=== PATIENT | female | born 1955 | race Caucasian/White ===

== ENCOUNTER 2022-02-24 05:45 | Day surgery (SDC) | payer MEDICARE ==
[~2022-02-24] VITALS: Ht 165.1 cm; Wt 122.7 kg
[~2022-02-24 05:45] MED LIST: CALCIUM500 MG PO; GABAPENTIN300 MG PO; LISINOPRIL20 MG PO; MAGNESIUM400 M1 PO; MELATONIN10 M2 PO; OMEPRAZOLE20 M2 PO; TRAZODONE HCL100 MG PO; VITA-C120 GM
--- NOTE | 2022-02-24 08:36 | NUR ---
PT IS ALERT, ORIENTED AND HAS COME HERE FROM [place] TO BE TREATED HERE. DAUGHTER IN LAW WILL BE HERE AT [place]. ALL QUESTIONS ASKED ANSWERED. PT MENTIONED THAT MANY PEOPLE WERE PRAYING FOR HER AND REQUESTED PRAYER. WILL FOLLOW
--- NOTE | 2022-02-24 11:27 | NUR ---
02/24/22 Jenaro Marin SHAKES HEAD "NO" WHEN ASKED IF SHE HAS PAIN OR NAUSEA.
[2022-02-24] MEDS ORDERED: MOTRIN IB200 MG PO (11:43)
[2022-02-24] MEDS ORDERED: PERCOCET 7.5-31 EACH PO (11:43)
[2022-02-24] MEDS ORDERED: TYLENOL EXTRA500 MG PO (11:44)
--- NOTE | 2022-02-24 12:25 | NUR ---
1210 PATIENT REPORT RECIEVED FROM ELVIN SHEPPARD. PATIENT BACK TO ROOM 5. PATIENT IS ALERT AND ORIENTED. BREATHING EQUAL AND UNLABORED. OXYGEN SATURATIONS ABOVE 90% ON ROOM AIR. PAITENT COMPLAINS OF 6/10 PAIN AT SURGICAL SITE. PATIENT DRESSINGS CLEAN, DRY AND INTACT. PATIENT DENIES FEELING NAUSEATED. IVF INFUSING. PATIENT DRINKING WATER AND EATING CRACKERS. SCD'S ON. NO QUESTIONS AT THIS TIME CALL LIGHT WITHIN REACH NO FUTHER NEEDS.
--- NOTE | 2022-02-24 12:32 | NUR ---
1230 PATIENT GIVEN PRN PAIN MEDICINE. PATIENT DENIES FEELING NAUSEATED AFTER CRACKERS. CALL LIGHT WITHIN REACH NO FUTHER NEEDS AT THIS TIME. NO QUESTIONS.
--- NOTE | 2022-02-24 13:09 | NUR ---
1309 PATIENT ALERT AND ORIENTED. PATIENT BREATHING EQUAL AND UNLABORED. OXYGEN SATURATIONS ABOVE 95% ON ROOM AIR. PATIENT COMPLAINS OF 5/10 PAIN BUT DENIES NEEDING MEDICATIONS AT THIS TIME. DENIES FEELING NAUSEATED. IVF INFUSING. SCD'S ON. PATIENT SURIGCAL SITE CLEAN DRY AND INTACT. PATIENT DENIES FEELING THE NEED TO VOID. WATER GIVEN TO PATIENT CALL LIGHT WITHIN REACH NO FUTHER NEEDS. NO QUESTIONS AT THIS TIME.
--- NOTE | 2022-02-24 14:14 | NUR ---
1345 PATIENT ABLE TO AMBULATE TO RESTROOM. PATIENT VOIDED CLEAR AND YELLOW URINE. PATIENT TOLERATED AMBULATION WELL. 1355 PATIENT DRESSING SELF. PATIENT HAS MET DISCHARGE CRITERIA. DISCHARGE INSTRUCTIONS GIVEN AND UNDERSTOOD. NO QUESTIONS AT THIS TIME. PATIENT IV D/C'D WNL. PATIENT WAS WHEELED OUT OF FACILITY TO SON. PRESCIPTION GIVEN TO HIM. NO QUESTIONS AND NO FUTHER NEEDS.
--- NOTE | 2022-02-24 17:56 | OR ---
[facility] [address], [place] [address] Signed DATE OF OPERATION: 02/24/2022 SURGEON: Denny Nava MD PREOPERATIVE DIAGNOSIS: Left upper outer quadrant infiltrating ductal breast carcinoma, ER-MN positive, Her2/lise negative. POSTOPERATIVE DIAGNOSIS: Left upper outer quadrant infiltrating ductal breast carcinoma, ER-MN positive, Her2/lise negative. PROCEDURES: 1. Injection of left areola with methylene blue dye for sentinel lymph node identification. 2. Left deep axillary sentinel lymph node biopsies x3 (+). 3. Left needle localized partial mastectomy upper outer quadrant. ANESTHESIA: General, LMA with conversion endotracheal tube (Nicole Ho CRNA) and local 10 mL of 0.25% Marcaine with epinephrine. INDICATIONS: This 66-year-old white woman is the [id number] of Dr. Taylor Morse. The patient is from [place], [place]. She was found to have a BI-RADS category 5 mammogram, ultimately undergoing image-guided biopsy as well as butterfly HydroMARK clip application to the biopsy site. Her pathology report dated January 07, 2022, confirmed infiltrating ductal carcinoma, nuclear grade 2/3, histologic grade 1/3, and mitotic grade 1/3. There was no evidence of lymphovascular invasion or perineural invasion or other adverse findings. There were some microcalcifications, but no evidence of in situ carcinoma. The lesion was ER positive, Her2/lise negative and MN positive. She has no associated palpable abnormality nor suspicious lymph nodes on examination. She has no evidence of metastatic disease based on chest x-ray preoperatively obtained. She is admitted at this time to undergo partial mastectomy with needle localized technique as well as sentinel lymph node biopsy of left axilla. She understands the risks of bleeding, infection, cosmetic deformity, need for additional surgery to provide a negative margin pathologically as well as need for possible axillary dissection depending on the extent of lymph node involvement (if any). She additionally understands that radiation therapy is considered standard to the treatment approach. She has chosen at this point. Understanding these risks, she wished to proceed. Electronically Signed By: DENNY NAVA MD 02/24/22 1756 PATIENT NAME: CARLIN MORSE OPERATIVE REPORT DATE OF : 57 REPORT #: [id number] PHYSICIAN: DENNY NAVA MD PCP: EBER VASQUEZ MD REPORT IS CONFIDENTIAL AND NOT TO BE RELEASED WITHOUT AUTHORIZATION [facility] [address], [place] [address] Signed FINDINGS: Needle localization was by Dr. Adam Osei, radiologist. The needle was well positioned and juxtaposed not far from the offending lesion. Specimen radiograph confirmed the excised specimen to contain the lesion and clip as expected. As regards, sentinel lymph node identification radionuclide dye was most helpful for identification of sentinel lymph nodes. Methylene blue dye did not take up well in the nodes for some reason. A 3 nodes (minimum) were excised, one of them which was relatively large, almost 2.5 cm, but not firm and hard and may represent reactive change. Final pathology is pending on those as current local protocol has not included frozen pathology of axillary lymph nodes. Good cosmesis was maintained. DESCRIPTION OF PROCEDURE: The patient was brought to the operating room, given a general LMA type anesthetic. Preoperative antibiotic Ancef was given. Sequential compression device stockings used and heparin subcutaneously administered. The left breast had a wire emanating from the superior medial aspect extending towards the left upper outer quadrant. A 2 mL of methylene blue dye was injected in the subepidermal space. The left breast axilla and arm were prepared with spray Betadine solution and draped sterilely. Interrogation of the left axilla with the C-Trak probe, found an area of intense uptake and a transverse incision was made in the axilla. Dissection was carried through the subcutaneous tissue with blunt electrocautery dissection. Unlike usual, arborization of methylene blue lymphatics was not forthcoming. Using the C-Trak probe alone, ultimately the area of hot uptake was undertaken was identified rather and dissection undertaken with blunt dissection. An area corresponding to initial sentinel lymph node was dissected free, passed for a sentinel lymph node #1 and confirmed to be "hot" with a probe. Additional dissection revealed a palpable node, which was relatively large, probably 2 cm or so in size and had intense uptake as well. This was dissected free also. Further dissection identified another small node also considered hot and quite unlikely to be malignant, but sent as sentinel lymph node #3. Additional interrogation of the axilla showed only minimal signal and thus the dominant sentinel lymph nodes have been removed. Notably, there was no sign of extensive blue dye lymphatic arborization as might have been expected. The wound was then packed and plans made for definitive excision of the offending lesion in the upper outer aspect of the left breast. The wire site was examined in relation to the preoperative localizing mammograms. An incision was made along the line of skin tension in the upper outer aspect of the breast. Dissection carried through the dermis sharply and electrocautery used for hemostasis. The wire was delivered into the wound. The parenchyma of the breast was grasped with an Allis clamp including the wire using electrocautery dissection. A conical excision was undertaken along the course of the wire. Wide resection was Electronically Signed By: DENNY NAVA MD 02/24/22 1756 PATIENT NAME: CARLIN MORSE OPERATIVE REPORT DATE OF : 57 REPORT #: [id number] PHYSICIAN: DENNY NAVA MD PCP: EBER VASQUEZ MD REPORT IS CONFIDENTIAL AND NOT TO BE RELEASED WITHOUT AUTHORIZATION [facility] [address], [place] [address] Signed undertaken, so as to be certain to excise the offending lesion in total. Dissection was carried to the pectoralis fascia indeed. Complete extirpation of the site with the wire in situ was undertaken the short, a short stitch was marked, designated superior specimen and long stitch laterally. The specimen sent for specimen radiograph, was confirmed by the radiologist include the clip and pathologic lesion in the resected specimen. Irrigation was undertaken with sterile water. A change of the LMA to an endotracheal tube was required during the course of this dissection and was accomplished without complication. Re-inspection of the axilla showed no sign of bleeding or other problem. Additional interrogation of the axilla showed a small amount of uptake and a small amount of blue dye in one area. This additional tissue was excised, though did not have an intense uptake with the radionuclide monitor. Once hemostasis was assured in both wounds, the parenchyma of the breast was reapproximated with interrupted 2-0 Vicryl. The skin was then closed with running subcuticular 3-0 Vicryl. Examination the axilla allowed for closure and a layered approach with 2-0 Vicryl and ultimately a running subcuticular 3-0 Vicryl. Steri-Strips were applied to each site as was an Acticoat dressing. The patient was ultimately extubated and transferred to the recovery room in good condition having suffered no complications. Sponge, needle, and instrument counts reported as correct x3. MD CHAPARRO Noland/AGL /[id number] cc: Taylor Morse MD Electronically Signed By: DENNY NAVA MD 02/24/22 1756 PATIENT NAME: CARLIN MORSE OPERATIVE REPORT DATE OF : 57 REPORT #: [id number] PHYSICIAN: DENNY NAVA MD PCP: EBER VASQUEZ MD REPORT IS CONFIDENTIAL AND NOT TO BE RELEASED WITHOUT AUTHORIZATION [facility] [address] [place] [address] [place], [place] [address] Signed Copies: ~ Electronically Signed By: DENNY NAVA MD 02/24/22 1756 PATIENT NAME: CARLIN MORSE OPERATIVE REPORT DATE OF : 57 REPORT #: [id number] PHYSICIAN: DENNY NAVA MD PCP: EBER VASQUEZ MD REPORT IS CONFIDENTIAL AND NOT TO BE RELEASED WITHOUT AUTHORIZATION
--- NOTE | 2022-03-05 23:01 | PATH ---
[facility] [address] [facility] [place], [place] [address] Signed SPECIMEN(S): A SENTINEL LYMPH NODE SPECIMEN(S): B SENTINEL LYMPH NODE 2 SPECIMEN(S): C SENTINEL LYMPH NODE 3 SPECIMEN(S): D LEFT BREAST SPECIMEN(S): E ADDITIONAL LEFT BREAST TISSUE SPECIMEN(S): F ADDITIONAL AXILLARY TISSUE SPECIMEN SOURCE: A. SENTINEL LYMPH NODE B. SENTINEL LYMPH NODE 2 C. SENTINEL LYMPH NODE 3 D. LEFT BREAST E. ADDITIONAL LEFT BREAST TISSUE F. ADDITIONAL AXILLARY TISSUE CLINICAL HISTORY: Left breast CA sentinel lymph node, left breast mass. Specimen Time to Fixation- 02/24/2022 10:44:00 AM FINAL PATHOLOGIC DIAGNOSIS: A. [place] lymph node, lymphadenectomy: - One sentinel lymph node, negative for tumor (0/1). - AE1/AE3 immunohistochemical stain and multiple serial sections are negative. Control slide stained appropriately positive. B. [place] lymph node #2, lymphadenectomy: - One sentinel lymph node, negative for tumor (0/1). - AE1/AE3 immunohistochemical stain and multiple serial sections are negative. Control slide stained appropriately positive. C. [place] lymph node #3, lymphadenectomy: - One sentinel lymph node, negative for tumor (0/1). - AE1/AE3 immunohistochemical stain and multiple serial sections are negative. Control slide stained appropriately positive. D. Breast, left, oriented lumpectomy: - Invasive ductal carcinoma with the following features: - Tumor site: Not specified. - Histologic grade ([place] histologic score): - Tubule formation score: 1/3. - Nuclear grade score: 2/3. - Mitotic score: 1/3. - Total score and applicable grade: I/III, total score 4/9, low grade. PATIENT NAME: JULITA MORSE PATHOLOGY DATE OF : 57 REPORT #: [id number] PHYSICIAN: FRANKLIN BECERRA PCP: EBER VASQUEZ MD REPORT IS CONFIDENTIAL AND NOT TO BE RELEASED WITHOUT AUTHORIZATION [facility] [address], [place] [address] Signed - Tumor size: 12 mm (see comment). - Ductal carcinoma in situ: Present, solid architectural pattern, 0.6 mm in greatest dimension, with no evidence of necrosis. - Lymphovascular invasion: Absent. - Treatment effect: No known presurgical therapy. - Treatment effect in lymph nodes: No known presurgical therapy. - Margins: - Invasive: - Inferior margin: 5 mm. - All other margins: Greater than 10 mm. - Ductal carcinoma in situ: - Inferior margin: 1 mm. - Medial margin: 4.5 mm. - All other margins: Greater than 10 mm. - Summary of lymph nodes: - Total number of lymph nodes examined: 3. - Total number of sentinel lymph nodes examined: 3. - Total number of lymph nodes with metastatic carcinoma: 0. - Additional findings: Atrophic breast tissue. - Breast tumor studies: Pending and will be reported in an addendum report. - Pathologic stage classification: pT1c, pN0(sn). E. Left breast tissue, additional, excision: - Adipose tissue within normal limits. F. Axillary tissue, additional, excision: - Adipose tissue within normal limits. COMMENT: Tumor is identified on polar opposite sides of the prior biopsy site. 12 mm represents the entire breadth of the tumor to include the central cystic scarred biopsy site. One of the tumor foci on one end of the biopsy site measures 2 mm in greatest dimension and the tumor focus completely opposite from this biopsy site measures 2.5 mm. Please correlate the size with the radiologic findings. As part of [facility]' Quality Improvement Program, this case was reviewed by another member of our pathology staff. PEGGY:JOY:emh:C1NR MICROSCOPIC EXAMINATION: Histologic sections of all submitted blocks are examined by light microscopy. These findings, together with the gross examination, support the pathologic diagnosis. PATIENT NAME: JULITA MORSE PATHOLOGY DATE OF : 57 REPORT #: [id number] PHYSICIAN: [facility] PCP: EBER VASQUEZ MD REPORT IS CONFIDENTIAL AND NOT TO BE RELEASED WITHOUT AUTHORIZATION [facility] [address] [place] [id number] Signed GROSS DESCRIPTION: Six specimens are received in six containers, labeled "Julita Mosre." A. The specimen, labeled "Julita Morse," and designated on the requisition "stitch karimi sentinel lymph node," is received in formalin and consists of 5.5 x 2.6 x 1.4 cm portion of yellow-em adipose tissue that has an attached black suture identifying the sentinel node that is a 2.6 cm in greatest dimension. The lymph node is serially sectioned and entirely submitted in cassettes A1-A2. Only adipose tissue within the container. B. The specimen, labeled "Julita Morse," and designated on the requisition "sentinel lymph node #2," is received in formalin and consists of 3.6 x 2.2 x 1.5 cm pink firm possible lymph node with attached yellow-em adipose tissue. The lymph nodes serially sectioned and entirely submitted for histologic examination in cassettes B1-B5 only adipose tissue remains within the container. C. The specimen, labeled "Julita Morse," and designated on the requisition "' stitch karimi sentinel node #3," is received in formalin and consists of 2.8 x 2.5 x 1.0 cm portion of yellow-em adipose tissue with black suture. The suture identifies the possible sentinel lymph node that is 1.5 x 1.2 x 0.9 cm. Lymph node is sectioned and entirely submitted in cassette C1. Only adipose tissue remains within the container. D. The specimen, labeled "Julita Morse," and designated on the requisition "left breast," is received in formalin and consists of 51 gram oriented portion of yellow-em fibroadipose tissue that is 8.5 x 4.9 x 3.4 cm and has an inserted metal localization wire. A short suture is present and identifies the superior margin; a long suture identifies the lateral margin. The specimen is inked as follows: superior - blue; inferior - green; medial - red; lateral - orange; anterior - yellow; and posterior - black. The specimen is serially sectioned from anterior to posterior into 14 slices revealing a 1.8 x 1.1 x 1.0 cm pink and congested mucoid filled possible biopsy cavity, surrounded by pink-white rubbery fibrous tissue. The possible biopsy cavity is present in slices 6-9, is 3.8 cm from the anterior soft tissue margin, 1.7 cm from the posterior soft tissue margin, 2.8 cm from the superior soft tissue margin, 0.2 cm from the inferior soft tissue margin, 1.3 cm from the medial soft tissue margin, and 1.0 cm from the lateral soft tissue margin. Approximately 90% of the remaining specimen is a yellow-em greasy adipose PATIENT NAME: JULITA MORSE PATHOLOGY DATE OF : 57 REPORT #: [id number] PHYSICIAN: [facility] PCP: EBER VASQUEZ MD REPORT IS CONFIDENTIAL AND NOT TO BE RELEASED WITHOUT AUTHORIZATION [facility] [address], [place] [address] Signed tissue and 10% is a white-em delicate fibrous tissue. Site Inspector sections are submitted in 10 cassettes. Cassette summary: (D1) anterior soft tissue resection margin, perpendicular, slice one (D2) fibroadipose tissue anterior to possible biopsy cavity, slice five (D3-D6) possible biopsy cavity to closest inferior and lateral soft tissue resection margins, perpendicular, slices 6-9 (D7-D8) medial and superior soft tissue resection margins, perpendicular, slices 6-9 (D9) fibroadipose tissue posterior to possible biopsy cavity, slice 10 (D10) posterior soft tissue resection margin, perpendicular, slice 14. Cold ischemia time: 13 minutes Approximate Formalin time: 29 hours. E. The specimen, labeled "Julita Morse," and designated on the requisition "additional left breast tissue," is received in formalin and consists of 10 g unoriented portion of yellow-em fibroadipose tissue that is 4.8 x 3.6 x 1.4 cm. One surface is inked blue and the opposite surface black. The specimen is serially sectioned perpendicular to the long axis revealing approximately 95% of the specimens a yellow-em adipose and 5% is a pink delicate fibrous tissue. No discrete mass lesions are grossly identified. The specimen is entirely submitted consecutively in cassettes E1-E10. Cold ischemia time: Insufficient data to calculate. Approximate Formalin time: 29 hours. F. The specimen, labeled "Julita Morse," and designated on the requisition "additional axillary tissue," is received in formalin and consists of 6 g unoriented portion of yellow-em fibroadipose tissue that is 4.6 x 2.9 x 1.3 cm. One surface is inked blue the opposite surface is inked black. The specimen is serially sectioned perpendicular to the long axis revealing no lymph nodes or mass lesions are grossly identified. The specimen is entirely submitted consecutively in cassettes F1-F6. Cold ischemia time: Insufficient data to calculate. Approximate Formalin time: 29 hours. FB (under the direct supervision of a pathologist) The Gross Description was prepared using a voice recognition system. The report was reviewed for accuracy; however, sound-alike word errors, addition and/or deletions may occur. If there is any question about this report, please contact Client Services. PATIENT NAME: JULITA MORSE PATHOLOGY DATE OF : 57 REPORT #: [id number] PHYSICIAN: FRANKLIN BECERRA PCP: EBER VASQUEZ MD REPORT IS CONFIDENTIAL AND NOT TO BE RELEASED WITHOUT AUTHORIZATION [address] [address] Signed ADDITIONAL NOTES: Immunohistochemical and/or in situ hybridization studies were performed on this case with the appropriate positive controls that react as expected. This test was developed and its performance characteristics determined by [facility]. It has not been cleared or approved by the U.S. Food and Drug Administration. The FDA has determined that such clearance or approval is not necessary. This test is used for clinical purposes. It should not be regarded as investigational or for research. [facility] is certified under the Clinical Laboratory Improvement Amendments of 1988 (CLIA) as qualified to perform high complexity clinical laboratory testing. This assay has not been validated for specimens that have been decalcified. PERFORMING LABORATORY: The technical component was performed by [facility], [address] [place] [id number] (CLIA# [id number]). The professional interpretation was performed by [facility], [facility], [facility] [address] [address] (CLIA#: [id number]). Diagnostician: Luis Contreras MD Pathologist Electronically Signed 03/05/2022 Copies: ~ PATIENT NAME: JULITA MORSE PATHOLOGY DATE OF : 57 REPORT #: [id number] PHYSICIAN: FRANKLIN BECERRA PCP: EBER VASQUEZ MD REPORT IS CONFIDENTIAL AND NOT TO BE RELEASED WITHOUT AUTHORIZATION
== END 2022-02-24 13:55 | disposition home or self-care (01) ==
LOC: DS 05:45 → MAM 07:30 → DS 07:30 → EDSTATUS 07:30 → DS 13:55
PROVIDERS: ATTEND Surgery
PROC: 0HBU0ZZ Excision of Left Breast, Open Approach (ICD-10-PCS; principal; 2022-02-24 09:00)
PROC: 07B60ZX Excision of Left Axillary Lymphatic, Open Approach, Diagnostic (ICD-10-PCS; 2022-02-24 09:00)
DX: C50.412 Malignant neoplasm of upper-outer quadrant of left female breast (principal); I10 Essential (primary) hypertension; K21.9 Gastro-esophageal reflux disease without esophagitis; Z87.891 Personal history of nicotine dependence
CPT/HCPCS: 19281; 76098; 78195; 88305; 88307; 88341; 88342; A9541; J0131; J0690; J1100; J1644; J1790; J1885; J2250; J2405; J2550; J2704; J3475; J7121; Q9968